=== PATIENT | female | born 2000 | race Caucasian/White ===

== ENCOUNTER 2020-08-18 10:17 | Emergency (ER) | payer OTHER, SELFPAY ==
[2020-08-18 10:18] VITALS: BP 133/71; PULSE 141; RESP 17; TEMP 36.3; O2SAT 97; BMI 26.7
--- NOTE | 2020-08-18 10:54 | EKG12_ITS ---
Test Reason : COUGH Blood Pressure : / mmHG Vent. Rate : 116 BPM Atrial Rate : 116 BPM P-R Int : 122 ms QRS Dur : 082 ms QT Int : 316 ms P-R-T Axes : 051 061 030 degrees QTc Int : 439 ms Sinus tachycardia Possible Left atrial enlargement Borderline ECG Confirmed by LOGAN RUIZ, MICHAELLE ([id number]), online editor JANN BAILEY ([id number]) on 08/23/2020 12:25:55 PM Referred By: COREEN Confirmed By:MICHAELLE FORD MD
--- NOTE | 2020-08-18 11:01 | NURSING ---
NO OLD EKGS
--- NOTE | 2020-08-18 11:41 | RAD_ITS ---
STUDY: X-RAY CHEST REASON FOR EXAM: Female, 19 years old. COUGH, positive COVID test 1.5 weeks ago, muscle aches, vomiting TECHNIQUE: Single AP portable view of the chest. COMPARISON: None. FINDINGS: The lungs are clear and expanded. There is no demonstrated pleural abnormality. Normal size heart. Normal mediastinum and carmen. Normal visualized pulmonary arteries. Normal visualized aortic arch and descending thoracic aorta. Normal visualized thoracic spine. Normal visualized ribs, clavicles, and shoulders. There is no demonstrated abnormality of the visualized soft tissue structures of the upper abdomen. RAD/Chest 1 View (Portable) IMPRESSION: Normal x-ray examination of the chest. Electronically Signed: Harrison Morocho, at 12:43 EDT , Service support ,
[2020-08-18] MEDS: 0.9% Normal Saline 1,000 ML 1000 ML IV (12:19)
[2020-08-18] MEDS: Ondansetron 4 MG/2 ML Vial IV (12:20)
[2020-08-18 12:48] LABS: Absolute Lymphocyte Count 1.12 X10^3/uL (0.83-4.51); Absolute Neutrophil Count 11.4 X10^3/uL (2.0-7.7); Basophil# 0.03 X10^3/uL; Basophil% 0.2 % (0-1); Eosinophil# 0.07 X10^3/uL; Eosinophils% 0.5 % (0-5); Hematocrit 44.7 % (37-47); Hemoglobin 15.2 g/dL (12.0-15.0); Lymphocyte # 1.12 X10^3/ul (4.0); Lymphocyte % 8.2 % (19-41); Mean Corpuscular Hgb 29.9 pg (27.0-32.0); Mean Platelet Vol. 9.8 fl (6.2-12.0); Monocyte# 0.82 X10^3/uL; NRBC Flagged by Analyzer 0 % (0-5); Neutrophil # 11.36 X10^3/uL (2.7-7.7); Neutrophil % 83.7 % (47-70); Platelet Count 302 K/mm3 (150-450); RBC Distribution Width CV 12.7 % (11.6-14.6); RBC Distribution Width SD 41.3 fl (35.1-43.9); Red Blood Count 5.08 M/mm3 (4.2-5.4); White Blood Count 13.6 K/mm3 (4.4-11.0)
[2020-08-18 12:54] LABS: ALB/GLOB Ratio 0.9 RATIO (0.9-2.4); AST(SGOT) 20 U/L (15-37); Alanine Aminotransfer ALT/SGPT 28 U/L (13-56); Albumin, Serum 3.8 g/dL (3.2-5.0); Alkaline Phosphatase 92 U/L (45-117); Anion Gap 7 (5-15); BUN 16 mg/dL (7-18); BUN/Creat Ratio 18.6 RATIO (10-20); CPK Total, Creatine Kinase 41 U/L (26-192); Calcium,Total 9.4 mg/dL (8.5-10.1); Chloride 102 mmol/L (98-107); Creatinine, Serum 0.86 mg/dL (0.55-1.02); EST Glomerular Filtration Rate 89 mL/min (>60); Est Glom Filt Rate - Afr Amer 108 mL/min (>60); Estimated Creatinine Clearance 87.04 ml/min; Globulin 4.1 g/dL (2.2-4.2); Glucose 80 mg/dL (74-106); Potassium 4.1 mmol/L (3.5-5.1); Protein, Total 7.9 g/dL (6.4-8.2); Sodium Level 138 mmol/L (136-145)
[2020-08-18 12:55] LABS: Internal QC Validated? YES +Cl - CLEAR BKGD; Pregnancy, Serum, hCG Quali. NEGATIVE Negative
[2020-08-18] MEDS: Ketorolac 30 MG/ML Syringe IV (13:01)
[2020-08-18 13:09] LABS: Mucous, Urine 0 SEEN /hpf (<or=2+)
[2020-08-18 13:27] LABS: Color, Urine Straw (Yellow); Glucose, Dipstick Normal (Normal); Ketone-Dipstick Negative (Negative); Leukocyte Esterase-Dipstick 25 /ul (Negative); Nitrite-Dipstick Negative (Negative); Occult Blood-Urine 50 /ul (Negative); Protein-Dipstick Negative (Negative); Specific Gravity, Urine 1.005 (1.002-1.030); Urine Bilirubin Dipstick Negative (Negative); Urine Clarity Sl. Cloudy (Clear); Urine Urobilinogen Normal (Normal)
[2020-08-18 14:01] LABS: Bacteria 1+ /hpf (None Seen); Red Blood Cells-Urine 0-5 SEEN /hpf (0-5); Squamous Epithelial Cells - UA 0-5 SEEN /hpf (5-10); White Blood Cells 0-5 SEEN /hpf (0-5)
--- NOTE | 2020-08-18 14:03 | ED.VISSUMM ---
- ER Visit Summary Date of Service: 08/18/20 Chief Complaint: [Body aches] History of Present Illness: The patient is a 19 F [presents to the emergency department complaint of body aches that started yesterday.] Patient was diagnosed with COVID-19 approximately 10 days ago. Patient had been doing relatively well until yesterday when she started having severe body aches and today developed a headache. Patient had an episode of vomiting today. Patient called her father who is a infectious disease specialist and he had concerns about possibility of rhabdomyolysis related to the Covid infection and referred her to the emergency department. I did discuss with patient's father his concerns. Patient does have history of tachycardia over the course of the last year and recently had a stress test that was unremarkable. Patient denies any cough currently. She denies any shortness of breath. She denies any abdominal pain. She describes just general body aches including pain in her back and upper extremities. Physical Examination: [HEENT-PERRLA, EOMI. Cranial nerves II through XII grossly intact. TMs clear. Mucous membranes moist. No adenopathy. No nuchal rigidity. Negative Kernig's, negative Rudzinski's Cardiovascular-regular and tachycardic. No murmurs auscultated. No rubs or clicks noted. Lungs-clear to auscultation, chest wall stable without crepitus or subcu emphysema Abdomen-normoactive bowel sounds, soft, nontender, no rebound or rigidity, no peritoneal signs. Extremities-intact ?4, normal range of motion, normal pulses, atraumatic. No rashes noted.] Test Results: [EKG obtained arrival shows sinus tachycardia with a ventricular rate of 116 bpm. CBC with differential was significant for white count 13.6, hemoglobin 15, hematocrit 45, placed 302. Chemistries unremarkable. LFTs normal. CPK was normal at 41. Troponin is less than 0.015. hCG was negative. Chest x-ray was normal.] Emergency Department Course and Treatment: [The line established on arrival. Patient given a liter normal same fluid bolus. Given Toradol 30 mg IV. She felt significantly improved after treatment.] Treatment Plan: [Advised to use ibuprofen for discomfort. Patient advised to push fluids.] Disposition: [Discharged home in stable condition] Impression: [Myalgias Viral syndrome secondary to COVID-19 Cephalgia] This note was generated with [employer] dictation software. It may contain incorrect words, spelling, and punctuation that were not noted in review of the chart prior to signing ED Disposition - Plan for ED Patient: Referrals: Iban Wray MD [Primary Care Provider] -
--- NOTE | 2020-08-18 14:09 | ED.DEP ---
ED Disposition - Plan for ED Patient: Instructions: ED Viral Syndrome Referrals: Iban Wray MD [Primary Care Provider] - 5-7 Days
[2020-08-18 14:20] VITALS: BP 128/74; PULSE 118; RESP 17; TEMP 36.9; O2SAT 98
== END 2020-08-18 14:23 | disposition home or self-care (01) ==
PROVIDERS: Emergency Provider Emergency Medicine; PCP Pediatrics
DX: U07.1 COVID-19 (principal)
CPT/HCPCS: 71045; 80053; 81001; 82550; 84484; 84703; 85025; 93005; 96361; 96374; 96375; 99283; J7030; A4216; J2405

== ENCOUNTER → 2021-10-06 15:29 | Outpatient (CLI) | payer OTHER, SELFPAY | PROVIDERS: PCP Pediatrics; Visit Provider Family Medicine | DX: Z23 Encounter for immunization (principal) ==

== ENCOUNTER → 2022-08-17 | Outpatient (CLI) | payer OTHER, SELFPAY ==
--- NOTE | 2022-08-17 08:04 | MRI_ITS ---
EXAM: MR RIGHT LOWER EXTREMITY WITHOUT INTRAVENOUS CONTRAST, ANKLE CLINICAL INDICATION: PAIN IN JOINTS OF ANKLE AND FOOT TECHNIQUE: Multiplanar and multisequence MR images of the right ankle without intravenous contrast. This report was created using [employer] technology. COMPARISON: None. FINDINGS: Attenuation of the anterior talofibular ligament is suggestive of a prior injury. No other ligamentous injuries. Intact ankle tendons with no tenosynovitis. No concerning marrow signal alterations. Ankle mortise is intact. No focal chondral defects arthritic changes. Muscles are unremarkable. Plantar aponeurosis is normal. No significant tibiotalar or subtalar joint effusions. No soft tissue masses or fluid collections. MRI/Lower Ext Joint Only (Routine) IMPRESSION: 1. Attenuation of the anterior talofibular ligament is suggestive of a prior injury. 2. No other significant internal derangement. Electronically Signed: Flynn Shane MD at 3:56 EDT ,
== END | disposition home or self-care (01) ==
LOC: MRI 07:59
PROVIDERS: Visit Provider Physician Assistant Surgical
DX: M25.571 Pain in right ankle and joints of right foot (principal); M79.671 Pain in right foot
CPT/HCPCS: 73721

== ENCOUNTER 2022-10-02 15:51 | Emergency (ER) | payer OTHER, SELFPAY ==
[2022-10-02 15:52] VITALS: BP 109/79; PULSE 97; RESP 16; TEMP 36.9; O2SAT 98; BMI 26.5
--- NOTE | 2022-10-02 16:17 | EX.ED.DYSGE1 ---
HPI History of Present Illness Chief Complaint: Bite Narrative Narrative: Patient presents with bat exposure apparently there was a bat living in the room for some time and they found it yesterday. She does not know of any bites however she has had left second toe pain for about 12 days. She did not see any bite gonzalez or any redness. She does not know of any trauma. She has no other symptoms. PFSH PFSH Medical History no medical history Home Medications sertraline 50 mg tablet 50 mg PO DAILY 10/02/22 [History Last Taken Unknown] Allergy/AdvReac Type Severity Reaction Status Date / Time No Known Allergies Allergy Verified 10/02/22 15:52 Surgical History no surgical history Social History Smoking Status: Never smoker ROS ROS ED ROS Narrative Past medical history: Depression anxiety Medications: Sertraline Social history: Noncontributory Review of systems: All systems negative except as indicated General: No fever Cardiovascular: No chest pain Respiratory: No shortness of breath or cough Gastrointestinal: No abdominal pain, nausea vomiting or diarrhea Genitourinary: No dysuria Musculoskeletal: Left second toe pain no known trauma Skin: No rash Neurological: No memory loss, confusion or any focal weakness Psych: No recent behavioral changes Hematologic: No easy bleeding or easy bruising EXAM Physical Exam Narrative Exam Narrative: Physical exam General: Well nourished, Well developed, No Acute Distress Head: Normocephalic, Atraumatic Eyes: Conjunctiva not pale ENT: Moist mucous membranes Neck: Supple, Nontender, No lymphadenopathy Cardiovascular: Regular rate, Regular rhythm Respiratory: No distress, CTA bilaterally Abdomen: Soft, Nontender, Nondistended Back: Nontender, Normal Inspection. Negative for: CVA tenderness Extremities: Left second toe does not show any erythema or calor,, full range of motion. No abnormality whatsoever Skin: Normal color, No rash Neurological: Alert, Normal Strength, Normal Sensation Psychological: Normal affect Const Vital Signs: 10/02/22 15:52 10/02/22 15:58 Temperature 98.5 F Temperature Source Temporal Pulse Rate 97 Respiratory Rate 16 Respiratory Effort Normal Non-Labored Respiratory Pattern Normal Blood Pressure 109/79 Blood Pressure Mean 89 Pulse Ox 98 Oxygen Delivery Method Room Air MDM MDM MDM Narrative Medical decision making narrative: She does wish for the rabies vaccine. I talked to her about injection at a possible site in the toe even though its been 12 days she does not want it at this time I agree she likely does not need it. Discharge Plan Triage Chief Complaint: Bite ED Provider: Cong Kearns Dx/Rx/DC Orders Clinical Impression: Exposure to rabies, Pain in toe Prescriptions: No Action sertraline 50 mg tablet 50 mg PO DAILY Label Comments: TAKE 1 TABLET BY MOUTH EVERY DAY Primary Care Provider: NOT,DEFINED Referrals: NOT,DEFINED [Primary Care Provider] - Activity Restrictions/Additional Instructions: Follow-up for your rabies vaccine schedule as per paperwork you were given Disposition Disposition: Home, Self Care
[2022-10-02] MEDS: Rabies Immune Globulin/PF 300 UNIT/ML, 5 ML VIAL 1360 UNIT IM (17:30)
[2022-10-02] MEDS: Rabies Vaccine,Human Diploid 2.5 UNITS Vial IM (17:32)
[2022-10-02 17:51] VITALS: RESP 16
== END 2022-10-02 17:53 | disposition home or self-care (01) ==
LOC: ED 16:34
PROVIDERS: Emergency Provider Emergency Medicine; PCP Pediatrics; Visit Provider Emergency Medicine
DX: Z20.3 Contact with and (suspected) exposure to rabies (principal); M79.675 Pain in left toe(s); Z23 Encounter for immunization; Z79.899 Other long term (current) drug therapy
CPT/HCPCS: 90375; 90675; 99282

== ENCOUNTER 2022-10-05 16:42 | Outpatient (CLI) | payer OTHER, SELFPAY ==
[2022-10-05] MEDS: Rabies Vaccine,Human Diploid 2.5 UNITS Vial IM (17:30)
[2022-10-05 17:34] VITALS: BP 113/80; PULSE 80; RESP 15; TEMP 36.7; O2SAT 97; BMI 26.5
== END 2022-10-05 17:50 | disposition home or self-care (01) ==
LOC: ED 17:49
PROVIDERS: PCP Pediatrics
DX: Z23 Encounter for immunization (principal)
CPT/HCPCS: 90675; 96372

== ENCOUNTER 2022-10-09 17:24 | Outpatient (CLI) | payer OTHER, SELFPAY ==
[2022-10-09 17:26] VITALS: BP 122/78; PULSE 88; RESP 16; TEMP 36.6; O2SAT 99; BMI 26.5
[2022-10-09 18:50] VITALS: BP 116/84; PULSE 96; RESP 16; O2SAT 96
[2022-10-09] MEDS: Rabies Vaccine,Human Diploid 2.5 UNITS Vial IM (18:50)
== END 2022-10-09 20:08 | disposition home or self-care (01) ==
LOC: ED 20:09
PROVIDERS: PCP Pediatrics
DX: Z23 Encounter for immunization (principal)
CPT/HCPCS: 90675; 96372